=== PATIENT | female | born 1960 | race Caucasian/White ===

== ENCOUNTER → 2021-01-20 09:05 | Outpatient (BNVA) | payer OTHER, SELFPAY | PROVIDERS: PCP Internal Medicine; Visit Provider Nurse Practitioner ==

== ENCOUNTER → 2021-07-25 12:01 | Outpatient (BNVA) | payer OTHER, SELFPAY | PROVIDERS: PCP Internal Medicine; Referring Provider Internal Medicine; Visit Provider Nurse Practitioner | DX: K21.9 Gastro-esophageal reflux disease without esophagitis (principal); K50.90 Crohn's disease, unspecified, without complications; Z93.2 Ileostomy status | CPT/HCPCS: 99212 ==

== ENCOUNTER → 2022-01-20 11:06 | Outpatient (BNVA) | payer OTHER, SELFPAY | PROVIDERS: PCP Internal Medicine; Visit Provider Nurse Practitioner | DX: K21.9 Gastro-esophageal reflux disease without esophagitis (principal); K50.90 Crohn's disease, unspecified, without complications; B37.0 Candidal stomatitis; Z93.2 Ileostomy status | CPT/HCPCS: 99212 ==

== ENCOUNTER → 2022-07-21 11:35 | Outpatient (BNVA) | payer OTHER, SELFPAY | PROVIDERS: PCP Internal Medicine; Referring Provider Internal Medicine; Visit Provider Nurse Practitioner | DX: K21.9 Gastro-esophageal reflux disease without esophagitis (principal); B37.9 Candidiasis, unspecified; Z79.899 Other long term (current) drug therapy; Z93.2 Ileostomy status | CPT/HCPCS: 99212 ==

== ENCOUNTER 2023-02-13 12:21 | Outpatient (AMB) | payer OTHER, SELFPAY ==
--- NOTE | 2023-02-13 12:25 | MHC.OFFVIS ---
Intake Vital Signs 02/13/23 12:28 Height 5 ft 6 in Weight 198 lb 13.711 oz BMI 32.1 BP 137/77 Blood Pressure Location Lt brachial Position Sitting Pulse 70 Intake Visit Reasons: 6 month fu Intake Note: Patient returns to in office visit today in 6 months follow up. CC: Patient reports doing good. Denies any new GI symptoms or concerns. Supervising Editor Trailer Required: No Accompanied by: Self / Same As Patient Allergies latex [LATEX] Allergy (Unknown, Verified 02/13/23 12:29) RASH Sulfa (Sulfonamide Antibiotics) Allergy (Unknown, Verified 02/13/23 12:29) Abdominal Pain HPI 6 month fu HPI Details Assessment & Plan (1) GERD (gastroesophageal reflux disease): Code(s): K21.9 - Gastro-esophageal reflux disease without esophagitis Plan: She continues on the lansoprazole with good control of her GERD. Problems with nystatin powder, will send again and call pharmacy, likely confusing with stoma powder. ROV 6 mos. (2) Ileostomy in place: Code(s): Z93.2 - Ileostomy status (3) Jeimy infection: Code(s): B37.9 - Candidiasis, unspecified Medications: Refilled nystatin 1 appl topical TI D 60 grams 3RF B37.0 - Candidal s tomatitis lansoprazole 30 mg PO DAILY 90 caps 2RF K21.9 - Gastro-eso phageal reflux dis ease without esoph agitis nystatin 1 appl topical TI D 60 grams 3RF B37.0 - Candidal s tomatitis TODAY'S VISIT She feels that the lansoprazole is working, but she still has occasional CP, she just had a neg stress test, but she does have a hx of costrochrondriits. She just had bladder susp surgery is recovering well. SHE NEVER RECEIVED THE NYSTATIN POWDER, will try to get an ostomy nurse involved and try sending the powder under a different indication. ROV 6 mos. [facility] Medical History History of small bowel obstruction Skin ulcer of perianal region, limited to breakdown of skin Surgical History H/O cystoscopy H/O esophagogastroduodenoscopy History of cholecystectomy History of ovarian resection History of total colectomy [place] teeth extracted Family History (Updated 01/20/22 @ 11:23 by GISELLE Louis) Paternal Grandmother Breast cancer Maternal Aunt Breast cancer Paternal Uncle Cancer Review of Systems Const Denies fatigue, Denies fever(s), Denies night sweats, Denies poor appetite and Denies weight loss Eyes Details: glasses Reports requires corrective lenses ENT Reports Normal hearing present, Denies dental pain, Denies dysphagia, Denies hearing loss, Denies mouth pain, Denies odynophagia, Denies throat swelling, Denies tongue swelling and Reports other (Dentition adequate) Card Reports no additional complaints Resp Reports no additional complaints GI Denies abdominal pain, Denies melena, Denies bloating, Denies hematochezia, Denies constipation, Denies GI cramping, Denies dysphagia, Denies excessive flatus, Denies early satiety, Reports heartburn, Denies diarrhea, Denies nausea, Denies odynophagia, Denies vomiting and Denies hematemesis Skin/Breast Denies pruritus, Denies lesions, Reports rash and Denies jaundice Neuro Reports Normal hearing present and Denies Abnormal speech present Endo Denies fatigue Aller/Immun Denies throat swelling and Denies tongue swelling Physical Exam Vital Signs: Last Vital Signs Pulse 70 02/13/23 12:28 BP 137/77 02/13/23 12:28 BMI result Body Mass Index 32.1 Const General: cooperative, no acute distress, well developed and well groomed Nutritional Appearance: well nourished and obese Orientation/consciousness: oriented to person, oriented to place and oriented to time Limitations: No language barrier HEENT Head: Yes normocephalic and Yes atraumatic Eyes General: appearance normal, both eyes and all related structures Pupils: Equal, round and reactive pupils present Neck Neck: Yes normal visual inspection and Yes no lymphadenopathy Thyroid: Thyroid normal Resp Effort & Inspection: normal respiratory effort and able to speak in complete sentences Auscultation: clear to auscultation bilaterally Cardio Rate: regular rate Rhythm: regular rhythm Heart sounds: Normal, physiologic split S2 sound present Peripheral pulses: radial pulses present and posterior tibial pulses present GI Other: Ostomy appliance affixed to the abdomen Inspection: No distended, No Abdominal panniculus present and Yes obesity Palpation (GI): Soft to palpation, nontender, no guarding, not rigid and No hepatosplenomegaly present Percussion: Yes normal to percussion Auscultation: normal bowel sounds Rectal Exam - Female: deferred Skin General skin exam: no rashes or lesions noted, turgor normal, skin not dry, no jaundice, No spider nevi and no striae Rashes: no rashes Nails: normal Neuro General: oriented to person, oriented to place and oriented to time Cranial nerves: Yes Equal, round and reactive pupils present and Yes Normal hearing present Speech: No Abnormal speech present Extrem General: Yes normal to inspection, No clubbing, No cyanosis and No edema Psych Appearance: grossly normal and well kempt Mental Status: mental status grossly normal Speech and movement: Normal speech and movement present Affect: normal affect Attitude: cooperative Thought process: Normal thought process present and not confabulating Thought content: Normal thought content present Insight: Fair insight present (Psych) Judgement: Fair judgement present (Psych) Assessment & Plan Assessment & Plan (1) Crohn's disease: Comment: Not a solid/clear diagnosis per Dr. Dorado, this is not been active since her mid 30s and she is not on any medication, pt has a total colectomy Code(s): K50.90 - Crohn's disease, unspecified, without complications Plan: She feels that the lansoprazole is working, but she still has occasional CP, she just had a neg stress test, but she does have a hx of costrochrondriits. She just had bladder susp surgery is recovering well. SHE NEVER RECEIVED THE NYSTATIN POWDER, will try to get an ostomy nurse involved and try sending the powder under a different indication. ROV 6 mos. (2) Migraines: Code(s): G43.909 - Migraine, unspecified, not intractable, without status migrainosus (3) Ileostomy in place: Code(s): Z93.2 - Ileostomy status (4) Jeimy infection: Comment: under breasts Code(s): B37.9 - Candidiasis, unspecified Coding Level of Care Code Est Pt Level 3 (45327) Diagnoses Crohn's disease K50.90 Migraines G43.[address] Z93.2 Jeimy infection B37.9
[2023-02-13 12:28] VITALS: BP 137/77; PULSE 70; BMI 32.1
== END 2023-02-13 12:43 | disposition home or self-care (01) ==
PROVIDERS: PCP Internal Medicine; Visit Provider Nurse Practitioner
DX: K50.90 Crohn's disease, unspecified, without complications (principal); G43.909 Migraine, unspecified, not intractable, without status migrainosus; Z93.2 Ileostomy status; B37.9 Candidiasis, unspecified
CPT/HCPCS: 99213

== ENCOUNTER → 2023-02-13 12:21 | Outpatient (BNVA) | payer OTHER, SELFPAY | PROVIDERS: PCP Internal Medicine; Visit Provider Nurse Practitioner | DX: K50.90 Crohn's disease, unspecified, without complications (principal); G43.909 Migraine, unspecified, not intractable, without status migrainosus; B37.9 Candidiasis, unspecified; Z93.2 Ileostomy status | CPT/HCPCS: 99212 ==

== ENCOUNTER 2024-09-04 12:37 | Outpatient (AMB) | payer OTHER, SELFPAY ==
--- NOTE | 2024-09-04 12:38 | A.OFFVIS_ITS ---
Vital Signs 09/04/24 12:39 Height 5 ft 6 in Weight 203 lb 4.259 oz BMI 32.8 BP 126/67 Blood Pressure Location Rt brachial Position Sitting Pulse 74 Intake Visit Reasons: f/u medications Intake Note: Kell returns to in office follow up of GERD. CC: Patient reports doing well and denies having any GI symptoms or concerns today. Allergies latex [LATEX] Allergy (Unknown, Verified 09/04/24 12:45) RASH Sulfa (Sulfonamide Antibiotics) Allergy (Unknown, Verified 09/04/24 12:45) Abdominal Pain HPI HPI f/u medications: Details: Assessment & Plan (1) Crohn's disease: Comment: Not a solid/clear diagnosis per Dr. Dorado, this is not been active since her mid 30s and she is not on any medication, pt has a total colectomy Code(s): K50.90 - Crohn's disease, unspecified, without complications Plan: She feels that the lansoprazole is working, but she still has occasional CP, she just had a neg stress test, but she does have a hx of costrochrondriits. She just had bladder susp surgery is recovering well. SHE NEVER RECEIVED THE NYSTATIN POWDER, will try to get an ostomy nurse involved and try sending the powder under a different indication. ROV 6 mos. (2) Migraines: Code(s): G43.909 - Migraine, unspecified, not intractable, without status migrainosus (3) Ileostomy in place: Code(s): Z93.2 - Ileostomy status (4) Misti infection: Comment: under breasts Code(s): B37.9 - Candidiasis, unspecified TODAY'S VISIT Her misti of the ostomy cleared up although she never received the nystatin. Next time tx for esophageal misti w/diflucan. Her GERD is well controlled on the lansoprazole. We discuss strategies for poss ible future wean, but she really struggles with her weight. ROV 6 mos. [facility] Medical History History of small bowel obstruction Skin ulcer of perianal region, limited to breakdown of skin Surgical History H/O cystoscopy History of ovarian resection H/O esophagogastroduodenoscopy [place] teeth extracted History of cholecystectomy History of total colectomy Family History Paternal Grandmother Breast cancer Maternal Aunt Breast cancer Paternal Uncle Cancer Review of Systems Const Denies fatigue, Denies fever(s), Denies night sweats, Denies poor appetite and Denies weight loss Eyes Details: glasses Reports requires corrective lenses ENT Reports Normal hearing present, Denies dental pain, Denies dysphagia, Denies hearing loss, Denies mouth pain, Denies odynophagia, Denies throat swelling, Denies tongue swelling and Reports other (Dentition adequate) Card Reports no additional complaints and Reports dyspnea on exertion Resp Reports dyspnea on exertion GI Details: Denies abdominal pain, Denies melena, Denies bloating, Denies hematochezia, Denies constipation, Denies GI cramping, Denies dysphagia, Denies excessive flatus, Denies early satiety, Denies heartburn, Denies diarrhea, Denies nausea, Denies odynophagia, Denies vomiting and Denies hematemesis Skin/Breast Denies pruritus, Denies lesions, Denies rash and Denies jaundice Neuro Reports Normal hearing present and Denies Abnormal speech present Endo Denies fatigue Aller/Immun Denies throat swelling and Denies tongue swelling Physical Exam Vital Signs: Last Vital Signs Pulse 74 09/04/24 12:39 BP 126/67 09/04/24 12:39 BMI result Body Mass Index 32.8 Const General: cooperative, no acute distress, well developed and well groomed Nutritional Appearance: well nourished and obese Orientation/consciousness: oriented to person, oriented to place and oriented to time Limitations: No language barrier HEENT Head: Yes normocephalic and Yes atraumatic Eyes General: appearance normal, both eyes and all related structures Pupils: Equal, round and reactive pupils present Neck Neck: Yes normal visual inspection and Yes no lymphadenopathy Thyroid: Thyroid normal Resp Effort & Inspection: normal respiratory effort and able to speak in complete sentences Auscultation: clear to auscultation bilaterally Cardio Rate: regular rate Rhythm: regular rhythm Heart sounds: Normal, physiologic split S2 sound present Peripheral pulses: radial pulses present and posterior tibial pulses present GI Inspection: No distended, No Abdominal panniculus present and Yes obesity Palpation (GI): Soft to palpation, nontender, no guarding, not rigid and No hepatosplenomegaly present Percussion: Yes normal to percussion Auscultation: normal bowel sounds Rectal Exam - Female: deferred Skin General skin exam: no rashes or lesions noted, turgor normal, skin not dry, no jaundice, No spider nevi and no striae Rashes: no rashes Nails: normal Neuro General: oriented to person, oriented to place and oriented to time Cranial nerves: Yes Equal, round and reactive pupils present and Yes Normal hearing present Speech: No Abnormal speech present Extrem General: Yes normal to inspection, No clubbing, No cyanosis and No edema Psych Appearance: grossly normal and well kempt Mental Status: mental status grossly normal Speech and movement: Normal speech and movement present Affect: normal affect Attitude: cooperative Thought process: Normal thought process present and not confabulating Thought content: Normal thought content present Insight: Good insight present (Psych) Judgement: Good judgement present (Psych) Assessment & Plan Assessment & Plan (1) GERD (gastroesophageal reflux disease): Code(s): K21.9 - Gastro-esophageal reflux disease without esophagitis Category: Medical (2) Crohn's disease: Comment: Not a solid/clear diagnosis per Dr. Dorado, this is not been active since her mid 30s and she is not on any medication, pt has a total colectomy Code(s): K50.90 - Crohn's disease, unspecified, without complications Category: Medical Plan Her misti of the ostomy cleared up although she never received the nystatin. Next time tx for esophageal misti w/diflucan. Her GERD is well controlled on the lansoprazole. We discuss strategies for possible future wean, but she really struggles with her weight. ROV 6 mos. Medications: Refilled lansoprazole 30 mg PO DAILY 90 caps 2RF K21.9 - Gastro-esophageal reflux disease without esophagitis Coding Level of Care Code Est Pt Level 3 (03760) Diagnoses GERD (gastroesophageal reflux disease) K21.9 Crohn's disease K50.90
[2024-09-04 12:39] VITALS: BP 126/67; PULSE 74; BMI 32.8
--- OUTSIDE RECORDS SUMMARY | 2024-09-04 15:02 | XMS_ITS | Clinical Summary ---
Author Organization [facility] ity Address [address] [place] [address] Care Team Providers Care Focused Factory Manager Name Role Phone Robson Christiansen MD Primary Care Provider [phone] Allergies Active Allergy Reactions Criticality Noted Date Comments Latex 07/08/2015 Other Reaction(s): Rash/Dermatitis Medications SUMAtriptan (IMITREX) 50 mg tablet TAKE 1 TABLET BY MOUTH AT ONSET OF HEADACHE- MAY REPEAT IF NEEDED IN 2 HOURS MAX 2/DAY 4 Active albuterol HFA (PROAIR HFA ; PROVENTIL HFA ; VENTOLIN HFA) 90 mcg/actuation inhaler Inhale 2 Puffs into the lungs every 6 hours as needed for Cough or Wheezing. 4 Active ibuprofen (ADVIL,MOTRIN) 800 mg tablet TAKE 1 TABLET BY MOUTH EVERY 8 HOURS NEEDED FOR PAIN OR FEVER. 3 Active lansoprazole (PREVACID) [address] capsule Take 1 capsule (30 mg total) by mouth 1 (one) time each day. 3 Active citalopram (CeleXA) 40 mg tablet Take 1 tablet (40 mg total) by mouth 1 (one) time each day in the morning. 3 Active multivit-min/iron /folic acid/K (ADULTS MULTIVITAMIN ORAL) Take by mouth 1 (one) time each day. Active fluticasone propionate (FLONASE) 50 mcg/actuation nasal spray One pump in each nostril every morning 2 Active fluticasone HFA (FLOVENT HFA) 220 mcg/actuation inhaler Inhale 1 Puff into the lungs 2 times daily. 2 Active loratadine (CLARITIN) 10 mg tablet Take 1 tablet (10 mg total) by mouth 1 (one) time each day. 0 Active LORazepam (ATIVAN) 0.5 mg tablet Take 0.5 mg by mouth every 6 hours as needed. Active traZODone (DESYREL) 100 mg tablet Take 1 tablet (100 mg total) by mouth at bedtime. Active Active Problems Problem Noted Date Diagnosed Date Anxiety and depression 05/27/2024 Overview (05/27/2024): Dr. García in [place] Crohn disease ([facility] V24, [facility] V28) 024 Overview (05/27/2024): Dr. Leanna Dorado at [place], s/p ileostomy DJD (degenerative joint disease) of cervical spi ne 05/27/2024 GERD (gastroesophageal reflux disease) 4 Lumbar herniated disc 05/27/2024 Migraine 05/27/2024 Hypercholesteremia 04/01/2020 Carpal tunnel syndrome of left wrist 06/22/2017 Overview (05/27/2024): +EMG testing Asthma 09/22/2015 Overview (05/27/2024): +PFT testing August 2013 Immunizations Name Administration Dates Next Due Influenza trivalent, 0.5mL, preservative free (Fluarix; FluLaval; Fluzone) ages 6mo and older (Afluria) 3 years and older 04/17/2022,05/16/2021,03/05/2019,01/31 Influenza, Unspecified 03/05/2019 Moderna (age 6mo & older) Bi valent, COVID-19, 0.5 mL or 0.25 mL dosage 04/17/2022 Pneumococcal polysaccharide 23 valent (Pneumovax 23) 2yo and older 01/15/2017 Zoster recombinant (Shingrix ) 19yo and older 06/10/2020,03/19/2020 Surgical History Surgery Date Site/Laterality Comments OTHER SURGICAL HISTORY 1974 PROCEDURE: NE ILEOSTOMY/JEJUNOSTOMY NON-TUBE; COMMENT: [facility] SALPINGOOPHORECTOMY 1982 Left PROCEDURE: NE LAPAROSCOPY W/RMVL ADNEXAL STRUCTURES; COMMENT: [facility]; Tube and Ovary removed OVARIAN CYST REMOVAL 1983 Right PROCEDURE: NE OVARIAN CYSTECTOMY UNI/BI; COMMENT: [facility] OTHER SURGICAL HISTORY 1984 Right PROCEDURE: NE UNLISTED PX FEMALE GENITAL SYSTEM NONOBSTETRICAL; COMMENT: Fallopian tube unblocked OTHER SURGICAL HISTORY 1985 Left PROCEDURE: NE EXC CYST/ABERRANT BREAST TISSUE OPEN 1/> LESION; COMMENT: benign; [facility] CHOLECYSTECTOMY 1988 PROCEDURE: HISTORICAL CHOLECYSTECTOMY; COMMENT: [facility] OTHER SURGICAL HISTORY 1997 PROCEDURE: NE LAPAROSCOPY W/LYSIS OF ADHESIONS; COMMENT: [facility] STOMACH SURGERY 1997 PROCEDURE: NE UNLISTED PROCEDURE STOMACH; COMMENT: [facility]; stoma removed and redone BREAST SURGERY Left PROCEDURE: NE UNLISTED PROCEDURE BREAST; COMMENT: 5O YRS OLD - breast lumpectomy APPENDECTOMY PROCEDURE: HISTORICAL APPENDECTOMY Medical History Medical History Date Comments Lumbar herniated disc DX:Lumbar herniated disc DJD (degenerative joint dise ase) of cervical spine DX:DJD (degenerative joint d isease) of cervical spine Crohn disease ([facility] V24, [facility] V28) DX:Crohn disease ([facility]); COMM ENT: [facility]; Dr. Dorado Migraine DX:Migraine Anxiety and depression DX:Anxiet y and depression Ileostomy in place ([facility] V24, [facility] V28) 07/08/2015 DX:Ileostomy in place ([facility]) GERD (gastroesophageal reflux disease) DX:GERD (gastroesophageal reflux disease) Asthma 09/22/2015 DX:Asthma Family History Medical History Relation Name Comments Breast cancer Aunt 1 maternal aunt; bilateral Uterine cancer Aunt 2 maternal not with CA Breast Breast cancer Aunt 3 maternal aunt; unilateral Heart attack Father Diabetes Maternal Grandmother d Other: heart disease Paternal Grandfather Other: breast cancer Paternal Grandmother Colon cancer Neg Hx Ovarian cancer Neg Hx Prostate cancer Neg Hx Relation Name Status Comments Aunt 1 Aunt 2 Aunt 3 Brother Alive half maternal; DJD neck Father Alive unknown heart i ssues Maternal Grandfather Maternal Grandmother Mother Alive A & W Paternal Grandfather Paternal Grandmother Sister Alive half paternal; stomach issues Social History Tobacco Use Types Packs/Day Years Used Date Smoking Tobacco: Former Smokeless Tobacco: Never Alcohol Use Standard Drinks/Week Comments Yes 0 (1 standard drink = 0.6 oz pur e alcohol) Comments Unknown Sex and Gender Information Value Date Recorded Sex Assigned at Not on file Legal Sex Female 3:22 AM EST Gender Identity Not on file Sexual Orientation Not on file Obstetrics History Last Filed Vital Signs Vital Sign Reading Time Taken Comments Blood Pressure 143/88 02/29/2024 10:49 AM EDT Pulse 79 02/29/2024 10:49 AM EDT Temperature - - Respiratory Rate - - Oxygen Saturation - - Inhaled Oxygen Concentration - - Weight 90.3 kg (199 lb) 02/29/2024 10:49 AM EDT Height 168.9 cm (5' 6.5 ) 02/06/2024 1:35 PM EDT Body Mass Index 31.64 02/06/2024 1:35 PM EDT Plan of Treatment Upcoming Encounters Date Type Department Care Team (Late st Contact Info) Description 02/09/2025 9:00 AM EDT Office Visit Adult Medicine [place] - [address] [address] Robson Christiansen MD [address] [place] [id number] 02/25/2025 11:00 AM EDT Appointment Radiology Department - [address] [address] Health Maintenance Due Date Last Done Comments DTaP,Tdap,and Td Vaccines (1 - Tdap) 1981 Pneumococcal Vaccine: 50+ Years (2 of 2 - PCV) 01/15/2018 01/15/2017 Pneumococcal Vaccine: Pediatrics (0 to 5 Years) and At-Risk Patients (6 to 64 Years) (2 of 2 - PCV) 01/15/2018 01/15/2017 Depression Screening 05/06/2022 HIV Screening 05/06/2022 Social Influencers of Health Screening 05/06/2022 RSV Immunization Adult Patients (1 - Risk 60-74 years 1-dose series) 2022 COVID-19 Vaccine ( season) 2024 04/17/2022, 11/23/2021, 08/21/2020, Additional history exists Cervical Cancer Screening: HPV 04/18/2024 04/18/2019 Influenza Vaccine (Season Ended) 2025 04/17/2022, 05/16/2021, 03/05/2019, Additional history exists Colorectal Cancer Screening: Colonoscopy 10/11/2025 10/12/2015 Breast Cancer Screening 02/07/2026 02/08/20 24, 02/08/2024, 12/20/2016, Additional history exists Cholesterol Screening (Lipid Panel) 09/09/2027 09/08/2022 Hepatitis C Screening Completed 01/19/2017 Zoster Vaccines Completed 06/10/2020, 03/19/2020 HIB Vaccines Aged Out No longer eligi ble based on patient's age to complete this topic HPV Vaccines Aged Out No longer eligi ble based on patient's age to complete this topic Hepatitis A Vaccines Aged Out No long er eligible based on patient's age to complete this topic Hepatitis B Vaccines Aged Out No long er eligible based on patient's age to complete this topic IPV Vaccines Aged Out No longer eligi ble based on patient's age to complete this topic MMR Vaccines Aged Out No longer eligi ble based on patient's age to complete this topic Meningococcal ACWY Vaccine Aged Out N o longer eligible based on patient's age to complete this topic Meningococcal B Vaccine Aged Out No l onger eligible based on patient's age to complete this topic RSV Immunization Patients Under 20 months Aged Out No longer eligible based on patient's age to complete this topic Varicella Vaccines Aged Out No longer eligible based on patient's age to complete this topic Procedures Procedure Name Priority Date/Time Associated Diagnosis Comments SCREENING MAMMOGRAPHY BI 2-VIEW BREAST INC CAD Routine 02/08/2024 11:13 AM EDT Encounter for general adult medical examination without abnormal findings Pain in right leg LIPID PANEL Routine 09/08/2022 HPV Routine 04/18/2019 HEPATITIS C SCREENING Routine 01/19/2017 COLONOSCOPY Routine 10/12/2015 from Last 3 Months or Most Recently Relevant to Health Maintenance Results * SCREENING MAMMOGRAPHY BI 2-VIEW BREAST INC CAD (02/08/2024 11:13 AM EDT) Anatomical Region Laterality Modality Radiographic Rosibel ging 02/06/2024 2:05 PM EDT Narrative 02/08/2024 1:29 PM EDT This is a summary report. The complete report is available in the patient's medical record. If you cannot access the medical record, please contact the sending organization for a detailed fax or copy. Full field digital screening tomosynthesis mammography, reviewed with CAD and compared to previous mammogram of 12/15/2016 and 11/09/2015.. The breasts are composed of fatty and fibroglandular tissue. ??No suspicious mass, architectural distortion or suspicious calcifications are identified. IMPRESSION: : No mammographic evidence of malignancy. BIRADS 1-Negative; N. Breast density: The breasts have scattered areas of fibroglandular density. 5 year breast cancer risk assessment 2.1 % Lifetime breast cancer risk assessment 9.9 % Breast cancer risk category Low (<15%) Location: [facility], [address] [place] [address], [address], [phone] Procedure Note Philly Aleman MD - 03/12/2024 This is a summary report. The complete report is available in thepatient's medical record. If you cannot access the medical record, pleasecontact the sending organization for a detailed fax or copy. Full field digital screening tomosynthesis mammography, reviewed with CADand compared to previous mammogram of 12/15/2016 and 11/09/2015.. Thebreasts are composed of fatty and fibroglandular tissue. No suspiciousmass, architectural distortion or suspicious calcifications areidentified. IMPRESSION: : No mammographic evidence of malignancy. BIRADS 1-Negative; N. Breast density: The breasts have scattered areas of fibroglandulardensity. 5 year breast cancer risk assessment 2.1 % Lifetime breast cancer risk assessment 9.9 % Breast cancer risk category Low (<15%) Location: [facility], [address] [place] [address], [phone], [phone] Result [facility] Oscar MAJANO IMG XR PROCEDURES Final Result * (ABNORMAL) Lipid panel (09/08/2022) [facility] LDL/HDL Ratio 4 0 - 4 Triglycerides 94 0 - 150 mg/dL Cholesterol 193 0 - 200 mg/dL HDL 52 >=40 mg/dL LDL Cholesterol 123(A) 0 - 100 mg/dL Blood Venous blood specimen / Unknown [facility] Provider LAB BLOOD ORDERABLES Xena l Result * Cervical Cancer Screening: HPV (04/18/2019) [facility] Cervical Cancer Screening: HPV abstracted, negative Result [facility] Provider HEALTH MAINTENANCE Final Result * Hepatitis C Screening (01/19/2017) [facility] Hepatitis C Screening abstracted [facility] Provider HEALTH MAINTENANCE Final Result * Colonoscopy (10/12/2015) [facility] Colonoscopy abstracted, no interpretation Anatomical Region Laterality Modality Other [facility] Provider HEALTH MAINTENANCE Final Result from Last 3 Months or Most Recently Relevant to Health Maintenance Care Teams Focused Factory Manager Relationship Specialty Start Date End Date Robson Christiansen MD [address] [place] [address] PCP - General Internal Medicine 06/06/18
== END 2024-09-04 13:10 | disposition home or self-care (01) ==
LOC: HO.HGI 12:37
PROVIDERS: PCP Internal Medicine; Visit Provider Nurse Practitioner
DX: K21.9 Gastro-esophageal reflux disease without esophagitis (principal); K50.90 Crohn's disease, unspecified, without complications
CPT/HCPCS: 99213

== ENCOUNTER → 2024-09-04 12:37 | Outpatient (BNVA) | payer OTHER, SELFPAY | PROVIDERS: PCP Internal Medicine; Visit Provider Nurse Practitioner | DX: K21.9 Gastro-esophageal reflux disease without esophagitis (principal); K50.90 Crohn's disease, unspecified, without complications; Z93.2 Ileostomy status | CPT/HCPCS: 99212 ==

== ENCOUNTER 2024-12-17 10:02 | Outpatient (AMB) | payer OTHER, SELFPAY ==
--- NOTE | 2024-12-17 10:04 | A.OFFVIS_ITS ---
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 Patient c/o: tender. Prior treatment include Kenalog injections 25yrs ago. Kenalog txt helped. Plastics Engineer Required: No Accompanied by: Self / Same As Patient Allergies latex (LATEX) Allergy (Unknown, Verified 12/17/24 10:09) RASH Sulfa (Sulfonamide Antibiotics) Allergy (Unknown, Verified 12/17/24 10:09) Abdominal Pain Medication List - Last Reconciled 12/17/24 by Mode Fulton MD albuterol sulfate 90 mcg/actuation 2 puffs inhalation Q6H PRN citalopram 40 mg PO DAILY fluticasone propionate 220 mcg/actuation (Flovent HFA) 1 puff PO ONCE fluticasone propionate 50 mcg/actuation 1 intranasal QAM ibuprofen 800 mg PO Q8H PRN lansoprazole 30 mg PO DAILY loratadine 10 mg PO DAILY PRN lorazepam 0.5 mg PO DAILY PRN multivitamin 1 tab PO DAILY nystatin 1 appl topical TID ostomy supplies (Stomahesive Protective Powder) As directed sumatriptan succinate 50 mg PO PRN trazodone 100 mg PO DAILY vit C-Zn gluc-herbal no.325 90-15 mg (Elderberry Zinc Vit C) camille PO HPI HPI Peristomal pyoderma: Details: [age] year old female referred for a parastomal ulcer She has a history of ulcerative colitis and had undergone colectomy with an end ileostomy at age of 13. She says she is not on any medications for IBD currently She had noticed this ulcer medial to her stoma about 3-4 months ago. She was referred to me therefore for further management Review of her records show that I had actually seen her more than 10 years ago for similar issue. I had done biopsies which showed chronic inflammation then She denies any problems with the stoma function. She feels well overall. [facility] Medical History (Updated 12/17/24 @ 10:33 by Mode Fulton MD) Parastomal ulcer of enterostomy Candidal stomatitis Jeimy infection History of small bowel obstruction Skin ulcer of perianal region, limited to breakdown of skin Surgical History H/O cystoscopy History of ovarian resection H/O esophagogastroduodenoscopy [place] teeth extracted History of cholecystectomy History of total colectomy Family History Paternal Grandmother Breast cancer Maternal Aunt Breast cancer Paternal Uncle Cancer Review of Systems Const Denies chills and Denies fever(s) Card Denies chest pain, Denies dyspnea and Denies dyspnea on exertion Resp Denies cough, Denies dyspnea and Denies dyspnea on exertion GI Details: Has an ileostomy Denies hematochezia and Denies change in bowel habits Denies hematuria Musc Denies back pain and Denies limited range of motion Neuro Denies focal weakness and Denies convulsions Psych Denies depression and Denies mood swings Physical Exam Vital Signs: Last Vital Signs Pulse 98 12/17/24 10:12 BP 130/79 12/17/24 10:12 BMI result Body Mass Index 32.4 Const General: comfortable and no acute distress Orientation/consciousness: patient oriented x3 Neck Neck: Yes no lymphadenopathy Resp Auscultation: clear to auscultation bilaterally Cardio Rhythm: regular rhythm GI Other: Ileostomy in the right side, functioning well, with peristomal ulcer medial to this measuring about 2 cm, with good granulation, clean, evidence of infection, irregular borders noted Palpation (GI): Soft to palpation, nontender and no guarding Neuro General: patient oriented x3 Assessment & Plan Assessment & Plan (1) Parastomal ulcer of enterostomy: Code(s): K94.19 - Other complications of enterostomy Category: Medical Plan: She has a parastomal ulcer medial to her ileostomy as described above. This actually looks clean and is granulating well. Would hold off on biopsies for now She needs good wound care. We had Don our stoma nurse instruct her on p articular care for this ileostomy. I will see him again in the office in about 1 month. We will hold off any topical agents including steroids at this time. She understands the plan and is comfortable with this. Coding Level of Care Code New Pt Level 3 (95738) Diagnoses Parastomal ulcer of enterostomy K94.19
[2024-12-17 10:12] VITALS: BP 130/79; PULSE 98; BMI 32.4
--- OUTSIDE RECORDS SUMMARY | 2024-12-17 10:53 | XMS_ITS ---
Author Name [facility] Organization Unknown Care Team Organization Name Specialty Phone Email Start Date End Da wero [facility] Christiansen Primary Care 04/04/2022 01/14/2024
--- OUTSIDE RECORDS SUMMARY | 2024-12-17 10:53 | XMS_ITS | Clinical Summary ---
Author Organization [facility] [address] [place] [address] Address [address] [place] [address] Phone Care Team Providers Care Brownell Operator Name Role Phone Robson Christiansen MD Primary Care Provider [phone] Allergies Active Allergy Reactions Criticality Noted Date [...] in each nostril every morning 2 Active loratadine (CLARITIN) 10 mg tablet Take 1 tablet (10 mg total) by mouth 1 (one) time each day. 0 Active LORazepam (ATIVAN) 0.5 mg tablet Take 0.5 mg by mouth every 6 hours as needed. Active traZODone (DESYREL) 100 mg tablet Take 1 tablet (100 mg total) by mouth at bedtime. Active fluticasone HFA (FLOVENT HFA) 220 mcg/actuation inhaler Inhale 2 puffs by mouth 2 (two) times a day. Rinse mouth with water after use to reduce aftertaste and incidence of candidiasis. Do not swallow. 12 g 2 5 Active Active Problems Problem Noted Date Diagnosed Date Anxiety and depression 05/27/2024 Overview (05/27/2024): Dr. García in [place] Crohn disease ([facility] V24, [facility] V28) 024 Overview (05/27/2024): Dr. Leanna Dorado at [place], s/p ileostomy DJD (degenerative joint disease) of cervical spi ne 05/27/2024 GERD (gastroesophageal reflux disease) 4 Lumbar herniated disc 05/27/2024 Migraine 05/27/2024 Hypercholesteremia 04/01/2020 Carpal tunnel syndrome of left wrist 06/22/2017 Overview (05/27/2024): +EMG testing Asthma 09/22/2015 Overview (05/27/2024): +PFT testing August 2013 Encounters Date Type Department Care Team Description 11/04/2024 2:30 PM EDT Office Visit Adult Medicine [address] [address] Robson Christiansen MD Crohn's disease with complication, unspecified gastrointestinal tract location ([facility] V24, [facility] V28) (Primary Dx); Skin lesion from Last 3 Months Immunizations Name Administration Dates Next Due Influenza [...] Surgery Date Site/Laterality Comments OTHER SURGICAL HISTORY 1973 PROCEDURE: [place] ILEOSTOMY/JEJUNOSTOMY NON-TUBE; COMMENT: [facility] SALPINGOOPHORECTOMY 1982 Left PROCEDURE: [place] LAPAROSCOPY W/RMVL ADNEXAL STRUCTURES; COMMENT: [facility]; Tube and Ovary removed OVARIAN CYST REMOVAL 1983 Right PROCEDURE: [place] OVARIAN CYSTECTOMY UNI/BI; COMMENT: [facility] OTHER SURGICAL HISTORY 1984 Right PROCEDURE: [place] UNLISTED PX FEMALE GENITAL SYSTEM NONOBSTETRICAL; COMMENT: Fallopian tube unblocked OTHER SURGICAL HISTORY 1985 Left PROCEDURE: [place] EXC CYST/ABERRANT BREAST TISSUE OPEN 1/> LESION; COMMENT: benign; [facility] CHOLECYSTECTOMY 1988 PROCEDURE: HISTORICAL CHOLECYSTECTOMY; COMMENT: [facility] OTHER SURGICAL HISTORY 1997 PROCEDURE: [place] LAPAROSCOPY W/LYSIS OF ADHESIONS; COMMENT: [facility] STOMACH SURGERY 1997 PROCEDURE: [place] UNLISTED PROCEDURE STOMACH; COMMENT: [facility]; stoma removed and redone BREAST SURGERY Left PROCEDURE: [place] UNLISTED PROCEDURE BREAST; COMMENT: 5O YRS OLD - breast lumpectomy APPENDECTOMY PROCEDURE: HISTORICAL APPENDECTOMY Medical History Medical History Date Comments Lumbar herniated disc DX:Lumbar herniated disc DJD (degenerative joint dise ase) of cervical spine DX:DJD (degenerative joint d isease) of cervical spine Crohn disease ([facility] V24, [facility] V28) DX:Crohn disease ([facility]); COMM ENT: [facility]; Dr. Dorado Migraine DX:Migraine Anxiety and depression DX:Anxiet y and depression Ileostomy in place ([facility] V24, [facility] V28) 07/08/2015 DX:Ileostomy in place ([facility]) GERD (gastroesophageal reflux disease) DX:GERD (gastroesophageal reflux [...] drink = 0.6 oz pur e alcohol) Housing Instability Answer Date Recorde d Are you worried that in the next 2 months you may not have stable housing? No 11/04/2024 Food Access & Nutrition Answer Date Rec orded Do you have access to a vari ety of food including fruits and vegetables? Yes 11/04/2024 Access to Healthcare Answer Date Record ed Within the last 3 months, ho w many times did you visit the emergency department for your medical care? 0 11/04/2024 Health Literacy Answer Date Recorded How often do you need to hav e someone help you when you read instructions, pamphlets, or other written material from your doctor or pharmacy? Rarely 11/04/2024 Caregiver: How often do you need to have someone help you when you read instructions, pamphlets, or other written material from your doctor or pharmacy? Not on file 11/04/2024 Financial Risk Answer Date Recorded How hard is it for you to pa y for the very basics like food, housing, medical care, and air conditioning / heating? Not very hard 11/04/2024 Transportation Answer Date Recorded Has the lack of transportati on kept you from meetings, work, or from getting things needed for daily living? No Has the lack of transportati on kept you from medical appointments or from getting medications? No 11/04/2024 Social Isolation Answer Date Recorded How often do you feel lonely or isolated from th ose around you? Never 11/04/2024 Food Risk Answer Date Recorded Within the past 12 months we worried whether our food would run out before we got money to buy more. Never true 11/04/2024 Within the past 12 months th e food we bought just didn't last and we didn't have money to get more. Never true 11/04/2024 Dependent Care Answer Date Recorded Do you need help finding or paying for care for your loved ones. For example, child nutrition manager or elderly care for an older adult? No 11/04/2024 Education Answer Date Recorded Do you think completing more education or training, like finishing a GED, going to college, or learning a trade, would be helpful for you? No 11/04/2024 Employment and Income Answer Date Recor ded During the last four weeks, have you been actively looking for work? No 11/04/2024 Living Situation Answer Date Recorded What is your living situation? 0 11/04/2024 Comments Unknown Sex and Gender Information Value Date Recorded Sex Assigned at Female 10/30/2024 3:28 PM EDT Legal Sex Female 3:22 AM EST Gender Identity Female 10/30/2024 3:28 PM EDT Sexual Orientation Not on file Obstetrics History Last Filed Vital Signs Vital Sign Reading Time Taken Comments Blood Pressure 130/86 11/04/2024 2:27 PM EDT Pulse 76 11/04/2024 2:27 PM EDT Temperature 36.1 C (96.9 F) 11/04/2024 2:27 PM EDT Respiratory Rate 20 11/04/2024 2:27 PM EDT Oxygen Saturation - - Inhaled Oxygen Concentration - - Weight 91.6 kg (202 lb) 11/04/2024 2:27 PM EDT Height 168.9 cm (5' 6.5 ) 11/04/2024 2:27 PM EDT Body Mass Index 32.12 11/04/2024 2:27 PM EDT Plan of Treatment Upcoming Encounters Date Type Department Care Team (Late st Contact Info) Description 02/09/2025 9:00 AM EDT Office Visit [place] [facility] [address] [place] [address] Robson Christiansen MD [address] [place] [address] 02/25/2025 11:00 AM EDT Appointment [address] [phone] Health Maintenance Due Date Last Done Comments DTaP,Tdap,and Td Vaccines (1 - Tdap) 1981 HIV Screening 05/06/2022 Cervical Cancer Screening: HPV 04/18/2024 04/18/2019 Influenza Vaccine (#1) 2025 , 02/26/2023, 04/17/2022, Additional history exists Colorectal Cancer Screening: Colonoscopy 10/11/2025 10/12/2015 Social Influencers of Health Screening 11/04/2025 11/04/2024 Breast Cancer Screening 02/07/2026 02/08/20 24, 02/08/2024, 12/20/2016, Additional history exists Cholesterol Screening (Lipid Panel) 09/09/2027 09/08/2022 Hepatitis C Screening Completed 01/19/2017 Zoster Vaccines Completed 06/10/2020, 03/19/2020 RSV Immunization Adult Patients Completed 03/29/2023 COVID-19 Vaccine Completed 01/30/2024, 06/2022, 04/17/2022, Additional history exists Pneumococcal Vaccine: 50+ Years Completed 04/08/2024, 01/15/2017 Depression Screening Completed 11/04/2024 HIB Vaccines Aged Out No longer eligi [...] in right leg LIPID PANEL Routine 09/08/2022 HM HPV Routine 04/18/2019 HM HEPATITIS C SCREENING Routine 01/19/2017 HM COLONOSCOPY Routine 10/12/2015 from Last 3 Months [...] composed of fatty and fibroglandular tissue. No suspicious mass, architectural distortion or suspicious calcifications are identified. IMPRESSION: : No mammographic evidence of malignancy. BIRADS 1-Negative; N. Breast density: The breasts have scattered areas of fibroglandular density. 5 year breast cancer risk assessment 2.1 % Lifetime breast cancer risk assessment 9.9 % Breast cancer risk category Low (<15%) Location: [facility], [address] [place] [address], [place], [address], [phone] Procedure Note Philly Aleman MD - 03/12/2024 [...] Breast cancer risk category Low (<15%) Location: [facility], [address] [place] [address], [address], [phone] Result [facility] Oscar MAJANO IMG XR PROCEDURES Final Result * (ABNORMAL) Lipid panel (09/08/2022) [facility] LDL/HDL Ratio 4 0 - 4 Triglycerides 94 0 - 150 mg/dL Cholesterol 193 0 - 200 mg/dL HDL 52 >=40 mg/dL LDL Cholesterol 123(A) 0 - 100 mg/dL Blood Venous blood specimen / Unknown Result [facility] Provider LAB BLOOD ORDERABLES Xena l Result * Cervical Cancer Screening: HPV (04/18/2019) [facility] Cervical Cancer Screening: HPV abstracted, negative Result [facility] Provider HEALTH MAINTENANCE Final Result * Hepatitis C Screening (01/19/2017) [facility] Hepatitis C Screening abstracted [facility] Provider HEALTH MAINTENANCE Final Result * Colonoscopy (10/12/2015) [facility] Colonoscopy abstracted, no interpretation Anatomical Region Laterality Modality Other [facility] Provider HEALTH MAINTENANCE Final Result from Last 3 Months or Most Recently Relevant to Health Maintenance Insurance [facility] [employer] Care Teams Brownell Operator Relationship Specialty Start Date End Date Robson Christiansen MD [address] [place] [id number] PCP - General Internal Medicine 06/06/18
== END 2024-12-17 10:45 | disposition home or self-care (01) ==
LOC: HO.HGS 10:03
PROVIDERS: PCP Internal Medicine; Visit Provider Surgery
DX: K94.19 Other complications of enterostomy (principal)
CPT/HCPCS: 99203

== ENCOUNTER → 2024-12-17 10:02 | Outpatient (BNVA) | payer OTHER, SELFPAY | PROVIDERS: PCP Internal Medicine; Visit Provider Surgery | DX: K94.19 Other complications of enterostomy (principal) | CPT/HCPCS: 99202 ==

== ENCOUNTER 2025-01-21 10:02 | Outpatient (AMB) | payer OTHER, SELFPAY ==
--- NOTE | 2025-01-21 10:04 | A.OFFVIS_ITS ---
Vital Signs 01/21/25 10:09 Height 5 ft 6 in Weight 202 lb BMI 32.6 BP 131/70 Blood Pressure Location Rt brachial Position Sitting Pulse 107 H Intake Visit Reasons: Peristomal pyoderma Intake Note: Patient here for 1mo follow up parastomal ulcer medial to her ileostomy. Patient c/o: reports infection is clearing, redness subsided. HAJA: 12-17-2024 Business Analysis Analyst Required: No Accompanied by: Grand Child Allergies latex (LATEX) Allergy (Unknown, Verified 01/21/25 10:09) RASH Sulfa (Sulfonamide Antibiotics) Allergy (Unknown, Verified 01/21/25 10:09) Abdominal Pain Medication List - Last Reconciled 01/21/25 by Mode Fulton MD albuterol sulfate 90 mcg/actuation 2 puffs inhalation Q6H PRN citalopram 40 mg PO DAILY fluticasone propionate 220 mcg/actuation (Flovent HFA) 1 puff PO ONCE fluticasone propionate 50 mcg/actuation 1 intranasal QAM ibuprofen 800 mg PO Q8H PRN lansoprazole 30 mg PO DAILY loratadine 10 mg PO DAILY PRN lorazepam 0.5 mg PO DAILY PRN multivitamin 1 tab PO DAILY nystatin 1 appl topical TID ostomy supplies (Stomahesive Protective Powder) As directed sumatriptan succinate 50 mg PO PRN trazodone 100 mg PO DAILY vit C-Zn gluc-herbal no.325 90-15 mg (Elderberry Zinc Vit C) camille PO HPI HPI Peristomal pyoderma: Details: She is here for follow-up for her peristomal skin ulcer. I had seen her last month for this and she was referred for possible biopsy. However, it appeared that the skin breakdown was secondary to irritation from her stoma so we had done some minor changes to stoma care. She says that the area has improved significantly. He denies any new problems with her ileostomy. [facility] Medical History Parastomal ulcer of enterostomy Candidal stomatitis Jeimy infection History of small bowel obstruction Skin ulcer of perianal region, limited to breakdown of skin Surgical History H/O cystoscopy History of ovarian resection H/O esophagogastroduodenoscopy [place] teeth extracted History of cholecystectomy History of total colectomy Family History Paternal Grandmother Breast cancer Maternal Aunt Breast cancer Paternal Uncle Cancer Review of Systems Const Denies chills and Denies fever(s) Card Denies chest pain, Denies dyspnea and Denies dyspnea on exertion Resp Denies cough, Denies dyspnea and Denies dyspnea on exertion GI Details: Ileostomy in place Denies hematochezia and Denies change in bowel habits Denies hematuria Musc Denies back pain and Denies limited range of motion Neuro Denies focal weakness and Denies convulsions Psych Denies depression and Denies mood swings Physical Exam Vital Signs: Last Vital Signs Pulse 107 H 01/21/25 10:09 BP 131/70 01/21/25 10:09 BMI result Body Mass Index 32.6 Const General: no acute distress and well developed Resp Effort & Inspection: normal respiratory effort Cardio Rate: regular rate GI Other: Ileostomy in place, appliance removed -- skin breakdown around ulcer has actually improved significantly and seems to be healing well, no new indications Palpation (GI): Soft to palpation, not firm, nontender and no guarding Assessment & Plan Assessment & Plan (1) Parastomal ulcer of enterostomy: Code(s): K94.19 - Other complications of enterostomy Category: Medical Plan: This area of skin breakdown was resolved. I changed her stoma appliance. She is to continue with the same stoma care for now. She can follow up in the office on a p.r.n. basis No biopsy was done. Coding Level of Care Code Est Pt Level 2 (07869) Diagnoses Parastomal ulcer of enterostomy K94.19
[2025-01-21 10:09] VITALS: BP 131/70; PULSE 107; BMI 32.6
--- OUTSIDE RECORDS SUMMARY | 2025-01-21 10:51 | XMS_ITS | Clinical Summary ---
Author Organization [facility] [address] [place] [address] Address [address] [place] [address] Phone Care Team Providers Care Perforating Machine Operator Name Role Phone Robson Christiansen MD Primary Care Provider [phone] Allergies Active Allergy Reactions Criticality Noted Date [...] (05/27/2024): Dr. García in [place] Crohn disease ([facility] V24, [facility] V28) 024 Overview (05/27/2024): Dr. Leanna Dorado at [place], s/p ileostomy DJD (degenerative joint disease) of cervical spi ne 05/27/2024 GERD (gastroesophageal reflux disease) 4 Lumbar herniated disc 05/27/2024 Migraine 05/27/2024 Hypercholesteremia 04/01/2020 Carpal tunnel syndrome of left wrist 06/22/2017 Overview (05/27/2024): +EMG testing Asthma 09/22/2015 Overview (05/27/2024): +PFT testing August 2013 Encounters Date Type Department Care Team Description 11/04/2024 2:30 PM EDT Office Visit Adult Medicine [address] [address] Robson Christiansen MD Crohn's disease with complication, unspecified gastrointestinal tract location ([facility] V24, [facility] V28) (Primary Dx); Skin lesion from Last [...] Site/Laterality Comments OTHER SURGICAL HISTORY 1973 PROCEDURE: [place] ILEOSTOMY/JEJUNOSTOMY NON-TUBE; COMMENT: [facility] SALPINGOOPHORECTOMY 1982 Left PROCEDURE: [place] LAPAROSCOPY W/RMVL ADNEXAL STRUCTURES; COMMENT: [facility]; Tube and Ovary removed OVARIAN CYST REMOVAL 1983 Right PROCEDURE: [place] OVARIAN CYSTECTOMY UNI/BI; COMMENT: [facility] OTHER SURGICAL HISTORY 1984 Right PROCEDURE: [place] UNLISTED PX FEMALE GENITAL SYSTEM NONOBSTETRICAL; COMMENT: Fallopian tube unblocked OTHER SURGICAL HISTORY 1985 Left PROCEDURE: [place] EXC CYST/ABERRANT BREAST TISSUE OPEN 1/> LESION; COMMENT: benign; [facility] CHOLECYSTECTOMY 1988 PROCEDURE: HISTORICAL CHOLECYSTECTOMY; COMMENT: [facility] OTHER SURGICAL HISTORY 1997 PROCEDURE: [place] LAPAROSCOPY W/LYSIS OF ADHESIONS; COMMENT: [facility] STOMACH SURGERY 1997 PROCEDURE: [place] UNLISTED PROCEDURE STOMACH; COMMENT: [facility]; stoma removed and redone BREAST SURGERY Left PROCEDURE: [place] UNLISTED PROCEDURE BREAST; COMMENT: 5O YRS OLD - breast lumpectomy APPENDECTOMY PROCEDURE: HISTORICAL APPENDECTOMY Medical History Medical History Date Comments Lumbar herniated disc DX:Lumbar herniated disc DJD (degenerative joint dise ase) of cervical spine DX:DJD (degenerative joint d isease) of cervical spine Crohn disease ([facility] V24, [facility] V28) DX:Crohn disease ([facility]); COMM ENT: [facility]; Dr. Dorado Migraine DX:Migraine Anxiety and depression DX:Anxiet y and depression Ileostomy in place ([facility] V24, [facility] V28) 07/08/2015 DX:Ileostomy in place ([facility]) GERD (gastroesophageal reflux disease) DX:GERD (gastroesophageal reflux [...] for your loved ones. For example, child caregiver private home or elderly care for an older adult? [...] 9:00 AM EDT [place] [facility] [place] [address] [place] [address] Robson Christiansen MD [address] [place] [address] 02/25/2025 11:00 AM EDT Appointment [address]iology Department - [address] [phone] Health Maintenance Due Date Last Done Comments [...] Breast cancer risk category Low (<15%) Location: [facility], [address] [place] [address], [place], [address], [phone] Procedure Note Philly Aleman MD - 03/12/2024 [...] Breast cancer risk category Low (<15%) Location: [facility], [address] [place] [address], [address], [phone] Result [facility] Oscar MAJANO IMG XR PROCEDURES Final Result * (ABNORMAL) Lipid panel (09/08/2022) [facility] LDL/HDL Ratio 4 0 - 4 Triglycerides 94 0 - 150 mg/dL Cholesterol 193 0 - 200 mg/dL HDL 52 >=40 mg/dL LDL Cholesterol 123(A) 0 - 100 mg/dL Blood Venous blood specimen / Unknown Result [facility] Provider LAB BLOOD ORDERABLES Xena l Result * Cervical Cancer Screening: HPV (04/18/2019) [facility] Cervical Cancer Screening: HPV abstracted, negative Result [facility] Provider HEALTH MAINTENANCE Final Result * Hepatitis C Screening (01/19/2017) [facility] Hepatitis C Screening abstracted [facility] Provider HEALTH MAINTENANCE Final Result * Colonoscopy (10/12/2015) [facility] Colonoscopy abstracted, no interpretation Anatomical Region Laterality Modality Other [facility] Provider HEALTH MAINTENANCE Final Result from Last 3 Months or Most Recently Relevant to Health Maintenance Insurance [facility] [employer] Care Teams Perforating Machine Operator Relationship Specialty Start Date End Date Robson Christiansen MD [address] [place] [id number] PCP - General Internal Medicine 06/06/18
== END 2025-01-21 10:20 | disposition home or self-care (01) ==
LOC: HO.HGS 10:03
PROVIDERS: PCP Internal Medicine; Visit Provider Surgery
DX: K94.19 Other complications of enterostomy (principal)
CPT/HCPCS: 99212

== ENCOUNTER → 2025-01-21 10:02 | Outpatient (BNVA) | payer OTHER, SELFPAY | PROVIDERS: PCP Internal Medicine; Visit Provider Surgery | DX: L98.499 Non-pressure chronic ulcer of skin of other sites with unspecified severity (principal); K94.19 Other complications of enterostomy | CPT/HCPCS: 99212 ==

== ENCOUNTER 2025-03-04 10:46 | Outpatient (AMB) | payer OTHER, SELFPAY ==
[2025-03-04 10:52] VITALS: BP 115/71; PULSE 114; BMI 32.7
--- NOTE | 2025-03-04 10:52 | MHC.OFFVIS ---
Vital Signs 03/04/25 10:52 Height 5 ft 6 in Weight 202 lb 13.204 oz BMI 32.7 BP 115/71 Blood Pressure Location Rt brachial Position Sitting Pulse 114 H Intake Visit Reasons: 6m GERD Intake Note: Kell presents to in office follow up of GERD. CC: Patient reports doing ok with some stomach upset here and there . Nutrition Internship Required: No Accompanied by: Self / Same As Patient Allergies latex (LATEX) Allergy (Unknown, Verified 03/04/25 11:06) RASH Sulfa (Sulfonamide Antibiotics) Allergy (Unknown, Verified 03/04/25 11:06) Abdominal Pain PFSH Medical History Parastomal ulcer of enterostomy Candidal stomatitis Jeimy infection History of small bowel obstruction Skin ulcer of perianal region, limited to breakdown of skin Surgical History H/O cystoscopy History of ovarian resection H/O esophagogastroduodenoscopy [place] teeth extracted History of cholecystectomy History of total colectomy Family History Paternal Grandmother Breast cancer Maternal Aunt Breast cancer Paternal Uncle Cancer Coding
--- NOTE | 2025-03-04 10:52 | MHC.OFFVIS ---
Vital Signs 03/04/25 10:52 Height 5 ft 6 in Weight 202 lb 13.204 oz BMI 32.7 BP 115/71 Blood Pressure Location Rt brachial Position Sitting Pulse 114 H Intake Visit Reasons: 6m GERD Allergies latex (LATEX) Allergy (Unknown, Verified 03/04/25 11:06) RASH Sulfa (Sulfonamide Antibiotics) Allergy (Unknown, Verified 03/04/25 11:06) Abdominal Pain HPI HPI 6m GERD: Details: Assessment & Plan (1) GERD (gastroesophageal reflux disease): Code(s): K21.9 - Gastro-esophageal reflux disease without esophagitis Category: Medical (2) Crohn's disease: Comment: Not a solid/clear diagnosis per Dr. Dorado, this is not been active since her mid 30s and she is not on any medication, pt has a total colectomy Code(s): K50.90 - Crohn's disease, unspecified, without complications Category: Medical Plan Her jeimy of the ostomy cleared up although she never received the nystatin. Next time tx for esophageal jeimy w/diflucan. Her GERD is well controlled on the lansoprazole. We discuss strategies for possible future wean, but she really struggles with her weight. ROV 6 mos. Medications: Refilled lansoprazole 30 mg PO DAILY 90 caps 2RF K21.9 - Gastro-esophageal reflux disease without esophagitis TODAY'S VISIT [facility] Medical History Parastomal ulcer of enterostomy Candidal stomatitis Jeimy infection History of small bowel obstruction Skin ulcer of perianal region, limited to breakdown of skin Surgical History H/O cystoscopy History of ovarian resection H/O esophagogastroduodenoscopy [employer] teeth extracted History of cholecystectomy History of total colectomy Family History Paternal Grandmother Breast cancer Maternal Aunt Breast cancer Paternal Uncle Cancer Review of Systems Const Denies fatigue, Denies fever(s), Denies night sweats, Denies poor appetite and Denies weight loss ENT Reports Normal hearing present, Denies dental pain, Denies dysphagia, Denies hearing loss, Denies mouth pain, Denies odynophagia, Denies throat swelling, Denies tongue swelling and Reports other (Dentition adequate) Card Reports no additional complaints Resp Reports no additional complaints GI Details: Denies abdominal pain, Denies melena, Denies bloating, Denies hematochezia, Denies constipation, Reports GI cramping, Denies dysphagia, Denies excessive flatus, Denies early satiety, Reports heartburn, Denies diarrhea, Reports loose stools, Denies nausea, Denies odynophagia, Denies vomiting and Denies hematemesis Skin/Breast Denies pruritus, Denies lesions, Denies rash and Denies jaundice Neuro Reports Normal hearing present and Denies Abnormal speech present Endo Denies fatigue Aller/Immun Denies throat swelling and Denies tongue swelling Physical Exam Vital Signs: Last Vital Signs Pulse 114 H 03/04/25 10:52 BP 115/71 03/04/25 10:52 BMI result Body Mass Index 32.7 Const General: cooperative, no acute distress, well developed and well groomed Nutritional Appearance: well nourished and obese Orientation/consciousness: oriented to person, oriented to place and oriented to time Limitations: No language barrier HEENT Head: Yes normocephalic and Yes atraumatic Eyes General: appearance normal, both eyes and all related structures Pupils: Equal, round and reactive pupils present Neck Neck: Yes normal visual inspection and Yes no lymphadenopathy Thyroid: Thyroid normal Resp Effort & Inspection: normal respiratory effort and able to speak in complete sentences Auscultation: clear to auscultation bilaterally Cardio Rate: regular rate Rhythm: regular rhythm Heart sounds: Normal, physiologic split S2 sound present Peripheral pulses: radial pulses present and posterior tibial pulses present GI Inspection: No distended, No Abdominal panniculus present and Yes obesity Palpation (GI): Soft to palpation, nontender, no guarding, not rigid and No hepatosplenomegaly present Percussion: Yes normal to percussion Auscultation: normal bowel sounds Rectal Exam - Female: deferred Skin General skin exam: no rashes or lesions noted, turgor normal, skin not dry, no jaundice, No spider nevi and no striae Rashes: no rashes Nails: normal Neuro General: oriented to person, oriented to place and oriented to time Cranial nerves: Yes Equal, round and reactive pupils present and Yes Normal hearing present Speech: No Abnormal speech present Extrem General: Yes normal to inspection, No clubbing, No cyanosis and No edema Psych Appearance: grossly normal and well kempt Mental Status: mental status grossly normal Speech and movement: Normal speech and movement present Affect: normal affect Attitude: cooperative Thought process: Normal thought process present and not confabulating Thought content: Normal thought content present Insight: Good insight present (Psych) Judgement: Good judgement present (Psych) Assessment & Plan Assessment & Plan (1) GERD (gastroesophageal reflux disease): Code(s): K21.9 - Gastro-esophageal reflux disease without esophagitis Category: Medical (2) Crohn's disease: Comment: Not a solid/clear diagnosis per Dr. Dorado, this is not been active since her mid 30s and she is not on any medication, pt has a total colectomy Code(s): K50.90 - Crohn's disease, unspecified, without complications Category: Medical (3) Ileostomy in place: Code(s): Z93.2 - Ileostomy status Category: Medical Plan She continues on her lansoprazole once a day. Unfortunately, her 11-year-old daughter has been hospitalized with behavioral issues. This has been very difficult on the family and she has been held over in the ER for several days. The increased stress has caused Kell quite a lot of gastrointestinal issues with a severe worsening of her irritable bowel. She has been treating this by drinking a lot of Pepto-Bismol. At this time she does not desire any further or different treatment. She continues to do well on her lansoprazole in general. Return office visit in 6 months or sooner should her symptoms continue after the family's crisis situation has resolved Medications: Refilled lansoprazole 30 mg PO DAILY 90 caps 2RF K21.9 - Gastro-esophageal reflux disease without esophagitis Coding Level of Care Code Est Pt Level 3 (99531) Diagnoses GERD (gastroesophageal reflux disease) K21.9 Crohn's disease K50.[address] Z93.2
== END 2025-03-04 11:16 | disposition home or self-care (01) ==
LOC: HO.HGI 10:47
PROVIDERS: PCP Internal Medicine; Visit Provider Nurse Practitioner
DX: K21.9 Gastro-esophageal reflux disease without esophagitis (principal); K50.90 Crohn's disease, unspecified, without complications; Z93.2 Ileostomy status
CPT/HCPCS: 99213

== ENCOUNTER → 2025-03-04 10:46 | Outpatient (BNVA) | payer OTHER, SELFPAY | PROVIDERS: PCP Internal Medicine; Visit Provider Nurse Practitioner | DX: K21.9 Gastro-esophageal reflux disease without esophagitis (principal); K50.90 Crohn's disease, unspecified, without complications; Z93.2 Ileostomy status | CPT/HCPCS: 99212 ==